=== PATIENT | female | born 1965 | race Two or more races ===

== ENCOUNTER 2016-08-28 09:37 | Day surgery (SDC) | payer OTHER ==
[~2016-08-28 09:37] MED LIST: FENTANYL 250 MCG/5 ML AMP IV PRN; LACTATED RINGERS 1,000 ML IV SCH; MIDAZOLAM HCL 5 MG/5 ML VIAL IV PRN
[2016-08-28] MEDS ORDERED: IV START KIT ONE (10:18)
[2016-08-28] MEDS ORDERED: LACTATED RINGERS 1,000 ML ONE (10:18)
[2016-08-28] MEDS ORDERED: FENTANYL 250 MCG/5 ML AMP ONE (10:21)
[2016-08-28] MEDS ORDERED: MIDAZOLAM HCL 5 MG/5 ML VIAL ONE (10:21)
== END 2016-08-28 11:45 | disposition home or self-care (01) ==
LOC: SDC 09:37
PROVIDERS: ATTEND Internal Medicine Gastroenterology
PROC: 0DJD8ZZ Inspection of Lower Intestinal Tract, Via Natural or Artificial Opening Endoscopic (ICD-10-PCS; principal; 2016-08-28)
DX: Z12.11 Encounter for screening for malignant neoplasm of colon (principal); Z88.0 Allergy status to penicillin